=== PATIENT | male | born 1945 | race Caucasian/White ===

== ENCOUNTER 2016-07-08 15:27 | Inpatient (IN) | payer OTHER ==
[~2016-07-08] VITALS: Ht 175.3 cm; Wt 80.9 kg
[2016-07-08] MEDS: HEPARIN SOD (PORCINE) 5000 UNITS/ML VIAL SC SCH (02:28)
[2016-07-08] MEDS ORDERED: ALBU17IN2 INH (15:48)
[2016-07-08] MEDS ORDERED: ASPIRIN 81 MG CHEW TABLET PO ONE (16:00)
[2016-07-08] MEDS: NITROGLYCERIN 0.4 MG SUBL TABLET SL PRN ×3 (16:08→16:31)
[2016-07-08 16:14] LABS: BASO % 0.4 % (0.0-1.0); EOS # 0.1 K/mm3 (0.0-0.50); EOS % 1.6 % (0.0-3.0); INR 0.96; LARGE UNSTAINED CELL # 0.2 K/mm3 (0.0-0.4); LYMPH # 1.3 K/mm3 (1.5-4.5); LYMPH % 13.4 % (24.0-44.0); MEAN CORPUSCULAR HGB CONC 32.5 g/dl (32.0-36.5); MEAN CORPUSCULAR VOLUME 92.3 fl (80.0-96.0); MONO # 0.5 K/mm3 (0.0-0.8); MONO % 5.9 % (0.0-5.0); NEUTROPHILS # 6.4 K/mm3 (1.8-7.7); NEUTROPHILS % 76.6 % (36.0-66.0); PLATELET COUNT, AUTOMATED 156 k/mm3 (150-450); WHITE BLOOD COUNT 8.4 K/mm3 (4.0-10.0)
[2016-07-08 16:24] LABS: ALBUMIN 3.7 GM/DL (3.2-5.2); ALKALINE PHOSPHATASE 85 U/L (45-117); ALT/SGPT 26 U/L (12-78); ANION GAP 8 MEQ/L (8-16); AST/SGOT 14 U/L (15-37); BILIRUBIN,DIRECT 0.2 MG/DL (0.0-0.2); BLOOD UREA NITROGEN 18 MG/DL (7-18); CALCIUM LEVEL 8.2 MG/DL (8.8-10.2); CARBON DIOXIDE LEVEL 29 MEQ/L (21-32); CHLORIDE LEVEL 103 MEQ/L (98-107); CREATININE FOR GFR 0.93 MG/DL (0.70-1.30); GLOMERULAR FILTRATION RATE > 60.0 (>42); GLUCOSE, FASTING 85 MG/DL (83-110); POTASSIUM SERUM 3.7 MEQ/L (3.5-5.1); SODIUM LEVEL 140 MEQ/L (136-145); TOTAL PROTEIN 7.4 GM/DL (6.4-8.2)
[2016-07-08] MEDS ORDERED: ISOVUE-370 76% 100ML VIAL (Q9967) As Ordered ONE (16:39)
--- NOTE | 2016-07-08 16:52 | REP ---
Clinical: Chest pain. Technique: AP and lateral. Comparison: 01/30/2015. Findings: Evaluation is limited by technique. Mediastinum and cardiac silhouette stable. Lung bangura demonstrate chronic interstitial changes. Posterior basilar atelectasis cannot be excluded. Impression: Limited examination cannot exclude posterior basilar atelectasis. Signed by Montana Segundo MD 07/08/2016 04:43 P
[2016-07-08] MEDS ORDERED: GI COCKTAIL 50ML BTL(HYOSCYAMINE/MAALOX/LIDOCAINE VISCOUS)(1:3:1) PO ONE (17:00)
--- NOTE | 2016-07-08 17:09 | REP ---
Clinical: Chest pain and shortness of breath. Technique: Axial contrast enhanced images from the thoracic inlet to the upper abdomen using 100 ml Isovue 370 intravenous contrast material with multiplanar re-formations. Findings: Satisfactory enhancement of the pulmonary vasculature is achieved and no filling defects are identified to suggest pulmonary embolus. Tortuous, ectatic thoracic aorta noted along with cardiomegaly. Lung bangura demonstrate chronic interstitial changes and findings to suggest mild pulmonary vascular congestion as well as small left posterior basilar atelectasis and pleural reaction. Impression: No evidence for pulmonary embolus. Small left posterior basilar atelectasis and pleural reaction. Cardiomegaly with tortuous thoracic aorta and atherosclerotic changes. Signed by Montana Segundo MD 07/08/2016 05:00 P
--- NOTE | 2016-07-08 18:40 | ECGEPIP ---
Stationary ECG Study [facility] - ED Test Date: 2016-07-08 Pat Name: TING OLIVA Department: Room: - Gender: M Single Resource Boss: ct : 1945 Requested By: BIRDIE Tijerina Order Number: [id number] Reading MD: Ricky Stern Measurements Intervals [place] Rate: 81 P: 27 MI: 138 QRS: -19 QRSD: 81 T: 65 QT: 352 QTc: 410 Interpretive Statements SINUS RHYTHM WITH MARKED SINUS ARRHYTHMIA NO PRIORS Electronically Signed On 07-08-2016 18:39:56 EDT by Ricky Stern
[2016-07-08] MEDS ORDERED: MORPHINE 4 MG/ML 1ML SYRINGE IV ONE (19:00)
[2016-07-08] MEDS ORDERED: NS 500 ML IV ONE (19:30)
[2016-07-08] MEDS ORDERED: INCR1INH INH (22:49)
[2016-07-08] MEDS ORDERED: MORPHINE 2 MG/ML 1ML SYRINGE IV PRN (23:30)
[2016-07-08] MEDS ORDERED: GABAPENTIN 300 MG CAP PO ONE (23:30)
[2016-07-08] MEDS ORDERED: LIDOCAINE 5% (LIDODERM) PATCH TD ONE (23:30)
[2016-07-08] MEDS ORDERED: LORazepam 1 MG TAB PO PRN (23:45)
[2016-07-08] MEDS ORDERED: HALOPERIDOL 5 MG/ML VIAL (J1630) IV PRN (23:45)
[2016-07-08] MEDS ORDERED: diphenhydrAMINE 25 MG CAP PO PRN (23:45)
[2016-07-09] MEDS: PERCOCET 5MG/325MG TAB PO PRN ×3 (00:17→19:59)
[2016-07-09] MEDS ORDERED: ALBUTEROL SULFATE 2.5 MG/0.5 ML INH NEB SOLN NEB PRN (01:45)
[2016-07-09] MEDS ORDERED: ONDANSETRON 4MG/2ML VIAL (J2405) As Ordered ONE (02:23)
[2016-07-09] MEDS: ONDANSETRON 4MG/2ML VIAL (J2405) IV PRN ×3 (02:29→17:41)
[2016-07-09 02:33] VITALS: BP 119/70
[2016-07-09] MEDS ORDERED: SLF 3 ML SYR IV PRN (02:45)
--- NOTE | 2016-07-09 02:50 | REPUSA ---
CLINICAL HISTORY: Back pain. Chest pain. TECHNIQUE: Fast spin echo T2 and spin echo T1 sequences were obtained in axial and sagittal planes. FINDINGS: The visualized osseous elements are intact and in normal alignment with no evidence of fracture or di slocation. The marrow signals are within normal limits. The visualized posterior elements are normal and the thoracic curvature is well maintained. The thoracic cord is of uniform signal intensity witho ut evidence of focal expansion. There is mild multilevel spondylosis. This is demonstrated by disc dehydration. Small anterior osteop hytes are seen. At T1-T2 level, no evidence of significant disk herniation or bulge. Canal and foramina are patent. At T2-T3 level, no evidence of significant disk herniation or bulge. Canal and foramina are patent. At T3-T4 level, no evidence of significant disk herniation or bulge. Canal and foramina are patent. At T4-T5 level, no evidence of significant disk herniation or bulge. Canal and foramina are patent. At T5-T6 level, no evidence of significant disk herniation or bulge. Canal and foramina are patent. At T6-T7 level, no evidence of significant disk herniation or bulge. Canal and foramina are patent. At T7-T8 level, no evidence of significant disk herniation or bulge. Canal and foramina are patent. At T8-T9 level, no evidence of significant disk herniation or bulge. Canal and foramina are patent. At T9-T10 level, no evidence of significant disk herniation or bulge. Canal and foramina are patent. At T10-T11 level, no evidence of significant disk herniation or bulge. Canal and foramina are patent. At T11-T12 level, no evidence of significant disk herniation or bulge. Canal and foramina are patent. IMPRESSION: 1. Mild multilevel spondylosis. 2. No evidence for central canal or foraminal stenosis at any level. Thank you for your kind referral of this patient.
--- NOTE | 2016-07-09 03:12 | HPE ---
DATE OF ADMISSION: 07/08/2016 PRIMARY CARE PROVIDER: Cristina Calle CHIEF COMPLAINT: Chest pain. HISTORY OF PRESENT ILLNESS: This patient is a 71-year-old male with past medical history significant for bronchitis, meningitis, Clarke's palsy, questionable hepatitis, who presented to [facility] on 07/08/2016, for chest pain. Patient stated his chest pain started yesterday in the food services manager around 1 a.m. while he was in a sound sleep. The pain was sharp, started at the left lower ribs and radiated to the left lateral chest. The pain resolved spontaneously. However, 1-2 p.m. yesterday, the patient was walking in [facility]. Patient felt like there was a pressure, achy type of discomfort located in bilateral lower ribs. Since then, the pain has been intermittent and therefore the patient came to [facility] for further evaluation. Patient stated he never had this pain in the past. Patient noted that the pain is worse during times of exertion, severe cough, or specific body movements. Patient is noted to have chills around 2 p.m. since the onset of the second chest pain episodes. Patient denies any other symptoms. ALLERGIES: PENICILLIN (lip swelling). HOME MEDICATIONS: - albuterol two puffs inhalation every four hours as needed - Ellipta 62.5 mcg inhalation daily PAST MEDICAL HISTORY: 1. Bronchitis. 2. History of Clarke's palsy. 3. History of meningitis. 4. Questionable history of hepatitis. PAST SURGICAL HISTORY: 1. Left index finger removed; patient had an accident with a table saw. 2. Left ankle repair. SOCIAL HISTORY: Patient used to smoke one pack daily for 50 years; he quit three years ago. Patient quit drinking 35 years ago. Denies any recreational drug use. Patient is DO NOT RESUSCITATE (DNR), DO NOT INTUBATE (DNI). OBJECTIVE: GENERAL: Moderate distress secondary to persistent lower chest discomfort with frequent exacerbation while patient is sitting still. Patient is alert, and oriented times three. HEENT: Normocephalic, atraumatic. Extraocular motors are grossly intact. CARDIOVASCULAR: Positive S1, S2, regular rate. LUNGS: Clear to auscultation bilaterally. ABDOMEN: Soft and nontender, nondistended. Bowel sounds are present. No rebound. No guarding. MUSCULOSKELETAL: Patient's pain can be reproduced by pressing on the mid thoracic region. The pain will start from the mid thoracic region and radiate to the bilateral lower ribs. When asked patient to move bending forward, patient feels there is some mild decrease of the chest pain. NEUROLOGICAL: Muscle strength 5/5. Sensation to fine touch grossly intact. LABORATORY DATA: WBC 8.4, hemoglobin 15, hematocrit 46.2, platelet count is 156. Sodium is 140, potassium 3.7, chloride is 103, carbon dioxide 129, BUN 18, creatinine 0.93, GFR greater than 60, fasting glucose 85, calcium is 8.2, total bilirubin is 1, direct bilirubin is 0.2, AST 14, ALT 26, alkaline phosphatase 85, troponin I is less than 0.02 times two sets. BNP is 19.3, total protein 7.4, albumin 3.7, lipase 105. PT 12.9, INR is 0.96. IMAGING STUDIES: CT angiogram of the chest showed no evidence of pulmonary embolism. Small left posterior bibasilar atelectasis and pleural reaction. Cardiomegaly with tortuous thoracic aorta and sclerotic changes. ASSESSMENT AND PLAN: 1. Chest pain. Patient will be admitted to the progressive care unit (PCU). We will monitor patient on telemetry. We will try to rule out any cardiac factors contributing to patient's chest pain. We will trend troponins. Differential could be nerve compression or stenosis. Patient will have a STAT MRI of the vertebral spine. There are some lung findings noted on CT angiogram. Those may also cause referred pain. We will also obtain echocardiogram. 2. Questionable history of hepatitis. Patient is not sure what type. Will follow with hepatic panel. 3. History of bronchitis. Patient will have breathing treatments as needed. 4. History of meningitis. 5. History of Clarke's palsy. 6. Deep vein thrombosis (DVT) prophylaxis. Patient is on heparin.
[2016-07-09 05:02] LABS: MEAN CORPUSCULAR HEMOGLOBIN 30.5 pg (27.0-33.0); MEAN CORPUSCULAR HGB CONC 33.2 g/dl (32.0-36.5); MEAN CORPUSCULAR VOLUME 91.9 fl (80.0-96.0); RED CELL DISTRIBUTION WIDTH 13.1 % (11.5-14.5); WHITE BLOOD COUNT 11.2 K/mm3 (4.0-10.0)
[2016-07-09 05:16] LABS: ANION GAP 10 MEQ/L (8-16); BLOOD UREA NITROGEN 25 MG/DL (7-18); CALCIUM LEVEL 7.9 MG/DL (8.8-10.2); CARBON DIOXIDE LEVEL 24 MEQ/L (21-32); CHLORIDE LEVEL 103 MEQ/L (98-107); CREATININE FOR GFR 0.95 MG/DL (0.70-1.30); GLOMERULAR FILTRATION RATE > 60.0 (>42); GLUCOSE, FASTING 136 MG/DL (83-110); POTASSIUM SERUM 3.9 MEQ/L (3.5-5.1); SODIUM LEVEL 137 MEQ/L (136-145)
[2016-07-09 05:52] VITALS: BP 124/63
[2016-07-09] MEDS: ACETAMINOPHEN TAB 650MG DOSE (2X325MG) PO PRN (06:02)
[2016-07-09] MEDS: HEPARIN SOD (PORCINE) 5000 UNITS/ML VIAL SC SCH ×3 (06:02→22:44)
[2016-07-09] MEDS: SLF 3 ML SYR IV SCH ×3 (06:02→22:00)
--- NOTE | 2016-07-09 07:21 | ECGEPIP ---
Stationary ECG Study [facility] - ED Test Date: 2016-07-08 Pat Name: TING OLIVA Department: Room: - Gender: M Vtc Technician: ColónB: 1945 Requested By: BIRDIE Tijerina Order Number: [id number] Reading MD: Ricky Stern Measurements Intervals [place] Rate: 73 P: 33 AL: 134 QRS: -14 QRSD: 81 T: 113 QT: 351 QTc: 387 Interpretive Statements SINUS RHYTHM LOW LIMB LEAD VOLTAGE Electronically Signed On 07-09-2016 7:21:44 EDT by Ricky Stern
[2016-07-09 08:00] VITALS: BP 121/77
[2016-07-09] MEDS: LevoFLOXacin IV 500 MG in APPROPRIATE DILUENT 1 EA IV SCH (08:46)
[2016-07-09] MEDS ORDERED: LR 1,000 ML IV SCH (10:30)
[2016-07-09] MEDS: **NOTE PATIENT COMMENT** MISC XX SCH (11:30)
--- NOTE | 2016-07-09 15:07 | IPN ---
DATE: 07/09/2016 Patient is seen and examined. Reported chest pain to be improved. Admitted overnight. Reported cough, but not much out of the ordinary. Denies any fevers or chills. Reported pleuritic chest pain, left-sided and epigastric, substernal that is sharp, worsened with breathing, but as per patient has been much improved. Reported abdominal bloating with one episode of nausea and vomiting. Denies any diaphoresis. VITAL SIGNS: Temperature 97.1, pulse 64, respirations 18, blood pressure 121/77, pulse oximetry 93% on room air. LABORATORY DATA: WBC 11.2, hemoglobin and hematocrit 12.9/38.8, platelets 141. Chemistry: Sodium 137, potassium 3.9, chloride 103, bicarbonate 24, BUN 25, creatinine 0.95. Cardiac enzymes negative times three. C-reactive protein 7.9. Brain natriuretic peptide 19.3. Lipase 105. MRI of the thoracic spine negative. CT angiogram negative. PHYSICAL EXAMINATION: GENERAL: Patient in no acute distress, comfortable. HEENT: Normocephalic, atraumatic. Extraocular muscles grossly intact. CARDIAC: Regular rate and rhythm, normal S1, S2. PULMONARY: Bilaterally clear to auscultation. ABDOMEN: Soft, mildly distended. Normal bowel sounds. No rebound. No guarding. BACK: No significant point tenderness. NEUROLOGICAL: No focal deficits, 5/5 bilateral upper and lower extremity strength. ASSESSMENT AND PLAN: This is a 71-year-old male patient with underlying medical history of bronchitis, meningitis, Clarke's palsy, questionable hepatitis, presented to [facility] for chest pain. 1. Chest pain. Admitted to progressive care unit (PCU). Cardiac enzymes negative times three. Telemetry appreciated. CT angiogram negative for pulmonary embolism (PE). Followup echocardiogram. MRI of the thoracic spine also negative. We will followup up echocardiogram. Supportive care. Symptoms seem to be improving, possibly musculoskeletal versus viral syndrome versus pneumonia. 2. Possible community-acquired bacterial pneumonia. Continue Levaquin. C-reactive protein elevated. CT scan appreciated. We will continue to follow. Incentive spirometry. 3. Nausea and vomiting. One episode noted. Given Zofran. We will followup CT scan of the abdomen later today. IV fluids with hydration. Abdomen exam mildly distended, but normal bowel sounds and passing gas. 4. Questionable history of hepatitis. Followup hepatitis panel. We will continue to monitor. 5. History of bronchitis. No significant wheeze. Continue to monitor. 6. History of meningitis. Supportive care. Continue to monitor. 7. History of Clarke's palsy. Supportive care. Continue to monitor. 8. Deep vein thrombosis (DVT) prophylaxis. Heparin subcutaneous. DISPOSITION PLANNING: Pending echocardiogram, CT of the abdomen, clinical improvement. We will monitor overnight. Potential discharge in the next 24-48 hours.
[2016-07-09] MEDS ORDERED: GASTROGRAFIN SOLUTION 30ML PO ONE (15:30)
[2016-07-09 16:00] VITALS: BP 131/70
[2016-07-09] MEDS ORDERED: GASTROGRAFIN SOLUTION 30ML (Q9963) PO ONE (16:00)
[2016-07-09] MEDS ORDERED: ISOVUE-370 76% 100ML VIAL (Q9967) As Ordered ONE (16:54)
--- NOTE | 2016-07-09 17:30 | REPUSA ---
CT of the abdomen and pelvis with contrast Clinical statement: vomiting, abdominal distention. Technique: Multiple axial CT images were obtained from the base of the lungs through the floor of the pelvis utilizing 5 mm axial slices after administration of oral and nonionic intravenous contrast. C oronal and sagittal reconstructions were also obtained. No comparison is available. Findings: Chest: There are bilateral lower lobe infiltrate as well as a small left-sided pleural effusion. Abdomen: The liver, spleen, pancreas, kidneys, gallbladder, and adrenal glands are unremarkable. The aorta demonstrates moderate atherosclerosis, with left posterior lateral mural thrombus demonstrated at the level of the renal arteries. There is no evidence of abdominal lymphadenopathy or ascites. Pelvis: The bowel is unremarkable, with no obstructive or inflammatory changes. There is mild sigmoid diverticulosis without evidence of diverticulitis. The appendix is normal. The urinary bladder is wi thin normal limits. The prostate is enlarged, measuring 5.1 x 5.9 cm. The other pelvic structures red ear grossly intact. There is no evidence of pelvic lymphadenopathy or ascites. Bones: There are no suspicious osseous abnormalities seen. There is moderate degenerative disc diseas e at L4/L5 and L5/S1. Disc osteophyte complexes at this level cause mild bilateral neural foraminal n arrowing. Impression: 1. No obstructive or inflammatory bowel changes. Sigmoid diverticulosis without evidence of diverticu litis. 2. Bilateral lower lobe infiltrates. Small left-sided pleural effusion. 3. Moderate atherosclerosis of the abdominal aorta without evidence of aneurysm or dissection. 4. Degenerative disc disease with disc osteophyte complexes at L4/L5 and L5/S1 as described.
[2016-07-09 20:00] VITALS: BP 124/70
[2016-07-10] VITALS (17 sets, daily range): BP systolic 113–132; BP diastolic 67–81; O2SAT 92–97
[2016-07-10] MEDS: PERCOCET 5MG/325MG TAB PO PRN (03:32)
[2016-07-10] MEDS: ONDANSETRON 4MG/2ML VIAL (J2405) IV PRN ×2 (05:10→20:51)
[2016-07-10] MEDS: HEPARIN SOD (PORCINE) 5000 UNITS/ML VIAL SC SCH ×3 (05:10→22:24)
[2016-07-10] MEDS: SLF 3 ML SYR IV SCH ×3 (05:10→22:24)
[2016-07-10 05:36] LABS: MEAN CORPUSCULAR HEMOGLOBIN 30.1 pg (27.0-33.0); MEAN CORPUSCULAR HGB CONC 32.7 g/dl (32.0-36.5); MEAN CORPUSCULAR VOLUME 91.9 fl (80.0-96.0); WHITE BLOOD COUNT 9.4 K/mm3 (4.0-10.0)
[2016-07-10 05:40] LABS: ANION GAP 7 MEQ/L (8-16); BLOOD UREA NITROGEN 19 MG/DL (7-18); CALCIUM LEVEL 8.3 MG/DL (8.8-10.2); CARBON DIOXIDE LEVEL 30 MEQ/L (21-32); CHLORIDE LEVEL 101 MEQ/L (98-107); CREATININE FOR GFR 0.81 MG/DL (0.70-1.30); GLOMERULAR FILTRATION RATE > 60.0 (>42); GLUCOSE, FASTING 106 MG/DL (83-110); POTASSIUM SERUM 3.5 MEQ/L (3.5-5.1); SODIUM LEVEL 138 MEQ/L (136-145)
[2016-07-10] MEDS ORDERED: traMADol 50 MG TAB PO PRN (06:00)
--- NOTE | 2016-07-10 06:06 | ECHO ---
DATE OF PROCEDURE: 07/09/2016 DATE OF : 1945 AGE: 71 REFERRING PROVIDER: Dr. Fischer. PATIENT LOCATION: Room 3211. REASON FOR ECHOCARDIOGRAM: Chest pain. 2D MEASUREMENTS: IVS: 1.0 cm LV: 4.9 cm LVPW: 1.0 cm LA: 3.9 cm Aorta: 3.7 cm Ascending aorta: 3.6 cm RV: 2.7 cm DOPPLER MEASUREMENTS: Peak velocity across the aortic valve: 0.9 m/s Peak velocity across the LVOT: 0.81 m/s with a ratio of 1.1 Peak gradient across the aortic valve: 18 mmHg Maximum tricuspid valve velocity: 2.6 m/s 2D COMMENTS: 1. Normal left ventricular size, wall thickness and normal global left ventricular systolic function. The estimated left ventricular systolic ejection fraction is 60% to 65%. 2. Normal left atrium. Normal right atrium and right ventricle. 3. The atrial septum appeared to be normal without evidence of defect or shunt. 4. No pericardial effusion seen. There was an echo free space noted anteriorly that could represent a pericardial fat pad. 5. Normal aortic valve. Minimally calcified mitral annulus with normal anterior mitral valve leaflet motion. Normal tricuspid valve. The pulmonic valve and proximal pulmonary artery branches were not well visualized. 6. The inferior vena cava was not visualized. DOPPLER: It detects trace mitral regurgitation and trace to mild tricuspid regurgitation. The calculated pulmonary artery systolic pressure varies between 30 to 40 mmHg. Abnormal relaxation pattern was noted across the septal and lateral valve annulus consistent with a pseudonormal pattern, left ventricular and diastolic pressure mildly elevated. IMPRESSION: 1. Normal global left ventricular systolic function. There are some features of left ventricular diastolic dysfunction as mentioned above. 2. Mitral annulus calcification with trace mitral regurgitation. 3. Trace to mild tricuspid regurgitation with probably mild pulmonary hypertension.
[2016-07-10] MEDS ORDERED: KETOROLAC TROMETHAMINE 10 MG TAB PO PRN (08:00)
[2016-07-10] MEDS ORDERED: POTASSIUM CHLORIDE 10 MEQ SR TABLET PO ONE (08:15)
[2016-07-10] MEDS ORDERED: PNEUMOCOCCAL VACCINE 0.5ML SYRINGE(90732) PNEUMOVAX 23 IM ONE (09:00)
[2016-07-10] MEDS: LevoFLOXacin IV 500 MG in APPROPRIATE DILUENT 1 EA IV SCH (09:57)
[2016-07-10] MEDS ORDERED: METOPROLOL 5 MG/5 ML VIAL IV STA (10:54)
[2016-07-10] MEDS ORDERED: METOPROLOL TART 25 MG TABLET PO ONE (11:15)
[2016-07-10] MEDS: **NOTE PATIENT COMMENT** MISC XX SCH (11:30)
[2016-07-10 11:47] LABS: T UPTAKE 34 % (33-40); THYROXINE (T4) 7.3 UG/DL (4.5-12.0)
[2016-07-10] MEDS: ASPIRIN 81 MG ENTERIC TAB PO SCH (12:12)
--- NOTE | 2016-07-10 13:47 | ECGEPIP ---
Stationary ECG Study [facility] Test Date: 2016-07-10 Pat Name: TING OLIVA Department: Room: M6566-77 Gender: M Communication Consultant: LEBRON : 1945 Requested By: IRENA KRISHNA Order Number: [id number] Reading MD: Vamsi Cerda Measurements Intervals [place] Rate: 133 P: PA: 0 QRS: -11 QRSD: 78 T: 0 QT: 150 QTc: 224 Interpretive Statements ATRIAL FIBRILLATION WITH RAPID VENTRICULAR RESPONSE PROBABLE INFERIOR MYOCARDIAL INFARCTION, PROBABLY OLD Nonspecific ST-T abnormalities. Increased heart rate and atrial fibrillation ablation new compared with 07/08/2016 at 2124. Electronically Signed On 07-10-2016 13:46:59 EDT by Vamsi Cerda
[2016-07-10] MEDS: AMIODARONE 200 MG TAB (PACERONE) PO SCH ×3 (15:06→22:24)
--- NOTE | 2016-07-10 15:19 | IPN ---
DATE: 07/10/2016 Patient is seen and examined. Reported chest pain to be improved but is having reaction against pain medication with nausea and vomiting. Earlier during the daytime, patient had episode of atrial fibrillation with rapid ventricular response on telemetry. Reported palpitations. Denies any fevers or chills. Reported pleuritic chest pain to be improving. Given Lopressor IV push 5 mg and 25 mg of metoprolol tartrate oral with improvement. Heart rate is down to 110s on telemetry. Cardiac enzymes and thyroid function tests were sent. VITAL SIGNS: Temperature 99.2, pulse 110, respirations 22, blood pressure 131/81, pulse oximetry 95% on two liters nasal cannula. LABORATORY DATA: WBC 9.4, hemoglobin and hematocrit 12.3/40.7, platelets 157. Chemistry: Sodium 138, potassium 3.5, chloride 101, bicarbonate 30, BUN 19, creatinine 0.8. Cardiac enzymes negative. C-reactive protein 14.3. Thyroid function tests negative. PHYSICAL EXAMINATION: GENERAL: Patient in no acute distress, comfortable. HEENT: Normocephalic, atraumatic. Extraocular muscles are intact. CARDIAC: Irregularly irregular, mild tachycardia, S1, S2. PULMONARY: Bilaterally clear to auscultation. Diminished breath sounds bilateral bases. ABDOMEN: Soft, mildly distended. Positive bowel sounds. No rebound. No guarding. BACK: No point tenderness to palpation. EXTREMITIES: No edema of bilateral lower extremities. ASSESSMENT AND PLAN: This is a 71-year-old male patient with underlying medical history of bronchitis, meningitis, Clarke's palsy, questionable hepatitis, who presented to [facility] with chest pain. 1. Chest pain. Progressive care unit (PCU) for telemetry monitoring. Cardiac enzymes have been negative. Telemetry appreciated. CT angiogram negative. Echocardiogram appreciated. MRI of the thoracic spine negative. CT of the abdomen negative. Supportive care, pain medication as ordered. Possibly secondary to atrial fibrillation versus musculoskeletal versus pneumonia. 2. Community-acquired bacterial pneumonia. Continue Levaquin. Followup cultures. C-reactive protein elevated. Incentive spirometry and TheraPEP. 3. Nausea and vomiting, secondary to opiates. Avoid opiates for pain medication. Patient currently on Toradol and Zofran as needed. CT of the abdomen appreciated. Initially hydration given. Supplement electrolytes. 4. New onset atrial fibrillation with rapid ventricular response. Metoprolol IV 5 mg given, placed on metoprolol 25 mg every eight hours. Cardiology consulted. Followup cardiac enzymes. Aspirin 81 mg by mouth daily. Patient has a CHADS2-VASc score of 1. Telemetry monitoring. Followup with cardiology for further recommendation. 5. Questionable history of hepatitis. Followup hepatitis panel. We will continue to monitor. 6. History of bronchitis. No significant wheeze. Continue to monitor. 7. History of meningitis. Supportive care. Continue to monitor. 8. History of Clarke's palsy. Supportive care. Continue to monitor. 9. Questionable history of obstructive sleep apnea. Obstructive sleep apnea (DORA) protocol. Need outpatient followup with restaurant floor manager for pulmonary function tests and sleep studies for possible continuous positive airway pressure (CPAP). In the meantime, we will closely monitor the patient. 10. Deep vein thrombosis (DVT) prophylaxis. Heparin subcutaneous. DISPOSITION PLANNING: Pending cardiology consultation, rate control, clinical improvement.
[2016-07-10] MEDS ORDERED: BACLOFEN 5MG PER 1/2 TABLET PO PRN (15:30)
--- NOTE | 2016-07-10 15:58 | CR ---
DATE OF CONSULTATION: 07/10/2016 REFERRING PHYSICIAN: Beatrice Fischer MD REASON FOR CONSULTATION: Paroxysmal atrial fibrillation with rapid ventricular rate and precordial chest pain. HISTORY OF PRESENT ILLNESS: Mr. Doug Liang is a 71-year-old man with no previously known heart disease who was hospitalized to [facility] after presenting to the emergency room (ER) on 07/08/2016; he presented with chest for which he was subsequently ruled out for acute myocardial infarction. While in the progressive care unit he developed atrial fibrillation with rapid ventricular response. Echocardiogram Doppler 07/09/2016, reported normal left ventricular (LV) systolic function. Grade 1 LV diastolic dysfunction (impaired relaxation filling pattern). Presence of mitral annular calcification with trace mitral regurgitation. Mild tricuspid regurgitation. Probably mild pulmonary hypertension. Patient reports he has not consumed alcohol for the past 35 years. No history of systemic hypertension. Palpitations: Patient has noticed irregular palpitations over his anterior chest intermittently for a few minutes at a time on rare occasions over many years. Palpitations usually last for a few minutes. Concurrently he notices an irregularity of his pulse. No other associated symptoms during these palpitations. For a few years the patient has had recurrent dull ache and pressure over the central anterior chest without radiation that occurs with moderate activity and is relieved by rest. He reports these episodes are rare. Up until he got ill and presented for this hospitalization, he was not bothered by any exertional dyspnea with his ordinary activities of daily living. No orthopnea or paroxysmal nocturnal dyspnea (PND). No leg or ankle swelling. No presyncope or syncope. No embolic events. No intermittent claudication. OTHER PAST MEDICAL AND SURGICAL HISTORY: Recurrent bronchitis. History of Clarke's palsy. History of meningitis. Possible history of hepatitis. Status post left index finger removed by an accident with a table saw. Status post left ankle repair. SOCIAL HISTORY: Prior smoking history of one pack per day for 50 years for which he quit 3 years ago. He reports he has not consumed any alcohol for the past 35 years. No recreational drug use. DO NOT RESUSCITATE status. DO NOT INTUBATE status. Resident of [place], [place]. . FAMILY HISTORY: Father had systemic hypertension and diabetes. One brother had carcinomatosis. REVIEW OF SYSTEMS: Decreased vision, status post bilateral cataract surgeries. Decreased hearing. Prior history of meningitis. Headaches. Chest pain as noted above. Irregular heart beat as noted above. Chronic obstructive pulmonary disease (COPD), asthma, recurrent bronchitis. Hemorrhoids. History of kidney stones. Previous prostate biopsy. Prior vasectomy. Gout. Arthritis. Orthopedic surgery for left ankle and middle finger of left hand. Previous left ankle fracture. Prior back injury. Back pain. Anxiety. No depression. No panic attacks. All other ten-point review of systems negative. PHYSICAL EXAMINATION: Pleasant, mildly overweight, man who appears his chronological age, who was not in respiratory or psychologic distress. Height 69 inches, weight 82.6 kg, body mass index (BMI) 26.9. Temperature 99.2, pulse 130 (irregularly irregular), respiratory rate 22, blood pressure 131/81, oxygen saturation 95% on oxygen 2 liters per minute by nasal cannula. No conjunctival pallor, sclerae icterus or xanthomas. Teeth were in generally poor condition with multiple missing teeth. Oral mucosa was moist and without pallor or cyanosis. Jugular venous pulsations were at 3 cm. Trachea midline. No palpable thyroid. No clubbing of nail beds, cyanosis, or splinter hemorrhages. No skin lesions, skin pallor, or icterus. Oriented to person, place, and time. Mood and affect normal. Curvature of the spine normal. Gait normal. Gross motor strength and tone normal. No abnormal muscle atrophy, fasciculations, or tremors. Respiratory expansion and effort was fair. No crackles or wheezes. No palpable apex beat. No parasternal lifts, heaves, thrills, or palpable heart sounds. First and second heart sounds were variable in intensity. No S3 or murmurs appreciated. No pericardial friction rubs. No palpable abdominal aorta. Femoral pulses normal. Pedal pulses normal. No lower extremity edema. No varicose veins. Abdomen was soft, nontender, with normal bowel sounds. No hepatosplenomegaly or organomegaly. Liver span 12 cm from right midclavicular line. Stool for occult blood not indicated. INVESTIGATIONS: Electrocardiogram 07/10/2016 at 11:08 a.m. 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 Atrial fibrillation new compared with sinus rhythm observed 07/08/2016. Anteroposterior (AP) and lateral chest xray 07/08/2016, was reported to be a limited examination but could not exclude posterior basilar atelectasis. Mediastinum and cardiac silhouette stable. Lung bangura demonstrate chronic interstitial changes. Laboratory work 07/10/2016, showed sodium 138, potassium 3.5, chloride 101, CO2 30, BUN 19, creatinine 0.81, estimated GFR greater than 60, glucose 106, magnesium 2.0, CPK 115, CPK-MB 1.5, troponin I less than 0.02, TSH 1.240, free T4 index normal, thyroxine normal, T3 uptake normal. Laboratory work 07/08/2016, showed BNP 19.3. ASSESSMENT AND PLAN: 1. Paroxysmal atrial fibrillation. Patient reports infrequent episodes over the course of many years of brief palpitations. He has developed atrial fibrillation with rapid ventricular response during this hospitalization and this is the first documentation of atrial fibrillation in this patient. The echocardiogram Doppler showed normal left ventricular (LV) size and systolic function and suggested impaired relaxation filling pattern. Left atrium was normal in size. No significant hemodynamic valve abnormalities were present. Overall, this would be classified as lone atrial fibrillation. His DRAGON CHADS2 score is currently 1 on the basis of age between 65-74 years old. Agree with metoprolol tartrate for heart rate control. I will place him on a short course of amiodarone. My plan is to stop the amiodarone after he converts to sinus rhythm and no plan at this time to be using an antiarrhythmic agent long-term. 2. Precordial chest pain. The patient describes longstanding, stable, exertional, visceral chest pain/discomfort relieved by rest. Suggestive of angina. His ECG shows possible old inferior wall myocardial infarct. Nonspecific ST-T abnormalities. My plan is to arrange for him to undergo a cardiac nuclear stress test as an outpatient for further evaluation. For now, continue metoprolol tartrate and continue aspirin. 3. Abnormal ECG. Electrocardiogram as described above. Management as described under the atrial fibrillation and precordial chest pain categories. Thank you, kindly, for asking us to participate in the cardiac care of Mr. Doug Liang.
[2016-07-10] MEDS: METOPROLOL TART 25 MG TABLET PO SCH (22:24)
[2016-07-11] VITALS (16 sets, daily range): BP systolic 111–139; BP diastolic 59–84; O2SAT 90–96
[2016-07-11 05:31] LABS: MEAN CORPUSCULAR HEMOGLOBIN 30.6 pg (27.0-33.0); MEAN CORPUSCULAR HGB CONC 33.2 g/dl (32.0-36.5); MEAN CORPUSCULAR VOLUME 92.1 fl (80.0-96.0); RED CELL DISTRIBUTION WIDTH 12.9 % (11.5-14.5); WHITE BLOOD COUNT 6.6 K/mm3 (4.0-10.0)
[2016-07-11 05:33] LABS: ANION GAP 6 MEQ/L (8-16); BLOOD UREA NITROGEN 18 MG/DL (7-18); CALCIUM LEVEL 8.2 MG/DL (8.8-10.2); CARBON DIOXIDE LEVEL 29 MEQ/L (21-32); CHLORIDE LEVEL 103 MEQ/L (98-107); GLOMERULAR FILTRATION RATE > 60.0 (>42); GLUCOSE, FASTING 141 MG/DL (83-110); POTASSIUM SERUM 3.7 MEQ/L (3.5-5.1); SODIUM LEVEL 138 MEQ/L (136-145)
[2016-07-11] MEDS: METOPROLOL TART 25 MG TABLET PO SCH (05:57)
[2016-07-11] MEDS: HEPARIN SOD (PORCINE) 5000 UNITS/ML VIAL SC SCH ×3 (05:57→22:04)
[2016-07-11] MEDS: SLF 3 ML SYR IV SCH ×3 (05:57→22:05)
[2016-07-11] MEDS: ASPIRIN 81 MG ENTERIC TAB PO SCH (09:07)
[2016-07-11] MEDS: LevoFLOXacin IV 500 MG in APPROPRIATE DILUENT 1 EA IV SCH (09:07)
--- NOTE | 2016-07-11 11:17 | IPN ---
DATE: 07/11/2016 SUBJECTIVE: Today the patient tells me that he woke up overnight feeling short of breath and this happens to him normally at home. He tells me that at the present time, he is not having any chest pain or any palpitations, those have completely resolved. He has no specific complaints. He has no fevers, chills, shortness of breath, nausea, vomiting or diarrhea. OBJECTIVE: Vital signs: Temperature 98.8, pulse 63, respiratory rate 22, blood pressure 121/59, oxygen saturation 96% on 2 liters nasal cannula. General: He is a pleasant man sleeping peacefully when I entered the room. He puts in his hearing aid. He is easily arousable to verbal stimuli. He is in no acute distress. He is accompanied by his who is sleeping in the adjacent bed. HEENT: Cranial nerves II-XII are grossly intact. Patient has moist mucous membranes. No elevation of CVP. Cardiovascular exam: S1, S2, regular at this time. He is mildly bradycardic. No distant heart sounds appreciated. Respiratory exam: Fairly clear. Abdominal exam: Obese Abdomen is soft. Extremities: There is 1+ edema bilaterally. LABORATORY STUDIES: WBC 6.6, hemoglobin 12.6, hematocrit 37.9, platelet count 152. Chemistry panel: Sodium 138, potassium 3.7, chloride 103, bicarbonate 29, BUN 18, creatinine 1.0. Three sets of cardiac enzymes are negative. CRP is trending down from yesterday 12.4 today down from 14.3. Microbiology: Blood cultures are negative for 48 hours. Respiratory PCR panel is negative. No new imaging. ASSESSMENT AND PLAN: This is a 71-year-old man who initially presented with chest pain. PROBLEMS: 1. Chest pain. Patient has been seen by Dr. Cerda. It sounds as though there is an anginal component. The plan is to undergo an outpatient stress test with Dr. Cerda in the outpatient setting. For the time being, he is on beta barbara and aspirin. In addition, I feel as though the patient has been having significant cough associated with pneumonia. He may be having some costochondritis which is reproducible on physical exam. I will provide him with some ibuprofen for this. 2. Paroxysmal atrial fibrillation. The patient likely had long stranding history of this given his history of palpitations. Dr. Cerda's help once again is appreciated. His ISRAEL/VAS2 score is 1. He is on aspirin. He did receive metoprolol. He did receive one dose of amiodarone yesterday, however, he became bradycardic with sinus carina to 38. At the present time, he is in sinus carina at approximately 50. I did update Dr. Cerda with change in patient status this morning. He agreed with discontinuing amiodarone and decreasing the patient's metoprolol dosing in half. 3. Community acquired pneumonia. The patient's cultures are all negative. He is currently on levofloxacin. Today is day 3 of 7. 4. Nausea and vomiting, adverse reaction to opiates which have been discontinued. 5. History of hepatitis. He does not appear to be exhibiting any hepatitis at the present time, his viral hepatitis panel is negative. Recommend further followup with outpatient provider. 6. Likely chronic obstructive pulmonary disease (COPD), patient has a history of tobacco abuse, long standing. He does not appear weak at this time. However, I suspect he would benefit from an outpatient pulmonary eval. 7. Obstructive sleep apnea. The patient certainly has a history suggestive of obstructive sleep apnea and he has been told he likely has in the past, however, he has never been compliant with CPAP. Recommend pulmonary eval and likely he will benefit from CPAP therapy. 8. Deep venous thrombosis (DVT) prophylaxis, patient is on heparin. DISPOSITION: Patient has been cleared by physical therapy. Should he continue to improve and feel well, I suspect he may be able to be discharged within the next 24 hours. MTDD
[2016-07-11] MEDS: **NOTE PATIENT COMMENT** MISC XX SCH (11:30)
[2016-07-11] MEDS: ACETAMINOPHEN TAB 650MG DOSE (2X325MG) PO PRN (12:08)
[2016-07-11] MEDS: METOPROLOL TART 12.5 MG PER 1/2 TAB PO SCH ×2 (15:09→22:04)
[2016-07-11] MEDS: IBUPROFEN 400 MG TAB PO SCH ×2 (15:10→22:04)
--- NOTE | 2016-07-11 22:36 | ECGEPIP ---
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 Electronically Signed On 07-11-2016 22:35:45 EDT by Vamsi Cerda
--- NOTE | 2016-07-11 22:38 | ECGEPIP ---
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 borderline low limb lead voltages. ABNORMAL RHYTHM ECG No significant change compared with 07/10/2016 at 2102 hours. Electronically Signed On 07-11-2016 22:38:05 EDT by Vamsi Cerda
[2016-07-12] VITALS: O2SAT 92
[2016-07-12 02:00] VITALS: O2SAT 97
[2016-07-12 04:00] VITALS: BP 127/60; O2SAT 96
[2016-07-12 05:12] LABS: MEAN CORPUSCULAR HEMOGLOBIN 30.6 pg (27.0-33.0); MEAN CORPUSCULAR HGB CONC 33.3 g/dl (32.0-36.5); MEAN CORPUSCULAR VOLUME 91.7 fl (80.0-96.0); RED CELL DISTRIBUTION WIDTH 12.7 % (11.5-14.5); WHITE BLOOD COUNT 5.9 K/mm3 (4.0-10.0)
[2016-07-12 05:31] LABS: ANION GAP 5 MEQ/L (8-16); BLOOD UREA NITROGEN 16 MG/DL (7-18); CARBON DIOXIDE LEVEL 30 MEQ/L (21-32); CHLORIDE LEVEL 106 MEQ/L (98-107); GLOMERULAR FILTRATION RATE > 60.0 (>42); GLUCOSE, FASTING 94 MG/DL (83-110); MAGNESIUM LEVEL 2.1 MG/DL (1.8-2.4); POTASSIUM SERUM 3.8 MEQ/L (3.5-5.1); SODIUM LEVEL 141 MEQ/L (136-145)
[2016-07-12] MEDS: METOPROLOL TART 12.5 MG PER 1/2 TAB PO SCH (05:42)
[2016-07-12] MEDS: IBUPROFEN 400 MG TAB PO SCH (05:49)
[2016-07-12] MEDS: SLF 3 ML SYR IV SCH (05:50)
[2016-07-12] MEDS: HEPARIN SOD (PORCINE) 5000 UNITS/ML VIAL SC SCH (05:50)
[2016-07-12 06:00] VITALS: O2SAT 93
[2016-07-12] MEDS ORDERED: LevoFLOXacin 500 MG TABLET PO SCH (06:00)
[2016-07-12 08:00] VITALS: BP 126/76
[2016-07-12] MEDS: ASPIRIN 81 MG ENTERIC TAB PO SCH (08:55)
[2016-07-12] MEDS ORDERED: LEVA500T PO (09:35)
[2016-07-12] MEDS ORDERED: ASPI81TAEC PO (09:35)
[2016-07-12] MEDS ORDERED: NITR4TASL SL (09:35)
[2016-07-12] MEDS ORDERED: METO12TA PO (09:35)
--- NOTE | 2016-07-12 10:46 | DSES ---
DATE OF ADMISSION: 07/08/2016 DATE OF DISCHARGE: DISCHARGE DIAGNOSIS: New-onset atrial fibrillation with rapid ventricular response. SECONDARY DIAGNOSES: 1. Chest pain. 2. Costochondritis. 3. Angina. 4. Community-acquired pneumonia. 5. Nausea and vomiting. 6. Chronic obstructive pulmonary disease (COPD). 7. Likely obstructive sleep apnea. HOSPITAL COURSE: The patient is a 71-year-old man who did not have good followup with the primary care provider and did not seek medical attention very often. He had had a long history of waking up at night short of breath and dyspnea on exertion. He presented with chest pain and was found to have atrial fibrillation with rapid ventricular response and was seen in consultation by Dr. Cerda of cardiology. It was felt as though the chest pain was possibly anginal component. The patient was started on aspirin, a beta barbara, and the plan is for an outpatient stress test. The patient was also started on as needed sublingual nitroglycerin as needed chest pain. The patient during his stay also was noted to have new-onset atrial fibrillation with rapid ventricular response. He did have an echocardiogram completed, which revealed normal left ventricle (LV) systolic function, some features of diastolic dysfunction. Dr. Cerda started him on metoprolol. He did receive one dose of amiodarone in the hospital, after which he became bradycardic and converted to normal sinus rhythm. He remained in a normal sinus rhythm with a heart rate in the 60s. His metoprolol was titrated down to 12.5 mg twice a day. At the present time, the patient has no chest pain. No shortness of breath. No nausea or vomiting. He has been cleared by physical therapy. SUBJECTIVE: Today, the patient denies any specific complaints. OBJECTIVE: Vital signs: Temperature 99, pulse 66, respiratory rate 18, blood pressure (BP) 126/76, oxygen (O2) saturation 96% on room air. General: He is an elderly man lying in bed. He does not appear to be in any distress whatsoever. He is lying flat and comfortable. HEENT: Cranial nerves II-XII are grossly intact. He has moist mucous membranes. No elevation in central venous pressure (CVP). Cardiovascular examination : S1, S2, bradycardic without distant heart sounds appreciated. Respiratory examination: Is actually quite clear with good air movement. He is comfortable on room air. Extremities: No clubbing, cyanosis, or edema. LABORATORY STUDIES: WBC 5.9, hemoglobin 12.8, hematocrit 38.3, platelet count 171. Chemistry panel: Sodium 141, potassium 3.8, chloride 106, bicarbonate 30, BUN 16, creatinine 1.0. He has had three sets of cardiac enzymes, which are negative. A TSH, which was within normal limits. Blood cultures were negative after 48 hours. Respiratory PCR panel was negative. IMAGING: The patient had a thoracic spine MRI in regard to his pain, which revealed multilevel spondylosis but no evidence of central canal or foraminal stenosis. The patient also had a CT angiography of the chest in regard to his chest pain, which revealed to pulmonary embolism (PE) but cardiomegaly. The patient did have a CT scan of the abdomen and pelvis with the concern to nausea and vomiting. There was some concern for a lower lobe pneumonia. ASSESSMENT AND PLAN: This is a 71-year-old man with resolved chest pain. PROBLEMS: 1. Resolved chest pain. Given the reproducible nature and his features on presentation, it is concerning for a costochondritis associated with his cough. However, he does have an existent component, as well, and I would not be surprised if there was underlying anginal component, as well. Dr. Cerda has seen the patient and has arranged for an outpatient stress test. He will followup with Dr. Cerda in his office if it is possible. He was started on aspirin and a beta barbara. Also, the patient on a dietary approaches to stop hypertension (DASH) diet. 2. Paroxysmal atrial fibrillation. The patient has a long history of intermittent palpitations. Congestive heart failure, hypertension, age, diabetes, stroke (CHADS)-vascular disease, age, sex category (VASc) 2 score is 1. He is on a baby aspirin. He is rate-controlled with metoprolol at the present time. He is in sinus after one dose of amiodarone, which made hm bradycardic. I did discuss the case with Dr. Cerda this morning. We will discharge the patient on 12.5 mg of metoprolol twice a day and close followup. 3. Community-acquired pneumonia. The patient is currently on levofloxacin, and his cultures are negative. Will continue to complete a 7-day course. 4. Nausea and vomiting. Likely related to his opiate use for treatment of his pain upon presentation. His pain has resolved, and his nausea and vomiting has resolved. Will discontinue the opiates. 5. History of hepatitis. He did not exhibit any abnormal liver function tests during his stay. However, hepatitis is negative. 6. Chronic obstructive pulmonary disease (COPD). The patient has a long history of tobacco use. He did briefly require oxygen while in the hospital. However, at the present time, he is able to ambulate and never dropped his saturations below 88% on extended ambulation. He does not require home oxygen (O2). However, I think he would benefit from a pulmonary consultation. 7. Possible obstructive sleep apnea. The patient has a long history of waking up at night short of breath, snoring, and daytime sleepiness. His primary care provider had actually recommended him to have a sleep study in the past, and I recommend he has a sleep study once again. Previously, he was discouraged as he does not have electricity where he lives. However, now he has a solar panel, which is new, which would likely support a continuous positive airway pressure (CPAP) machine overnight. I recommend he has outpatient polysomnography. 8. Deep venous thrombosis (DVT) prophylaxis. The patient is on heparin. DISPOSITION: The patient is being discharged home to the care of his . He is at his functional baseline, and all his presenting complaints have resolved. He is to followup with his primary care provider in 7 days and followup with Dr. Cerda as soon as possible. His activity is as prior to admission. His diet is DASH. He is to return to the emergency room (ER) if his symptoms worsen. He should consider outpatient sleep study and pulmonary referral. MEDICATIONS AT THE TIME OF DISCHARGE: Are: - aspirin 81 mg daily - levofloxacin 500 mg daily for 4 days - metoprolol tartrate 12.5 mg twice a day - nitroglycerin 0.4 mg sublingually every 5 minutes as needed for chest pain - albuterol (Proventil HFA) two puffs inhaled every 4 hours as needed for shortness of breath - Incruse Ellipta 62.5 mcg daily Greater than 30 minutes spent organizing disposition.
[2016-07-12] MEDS: **NOTE PATIENT COMMENT** MISC XX SCH (11:30)
== END 2016-07-12 12:19 | disposition home or self-care (01) | DRG 313 ==
LOC: M ED 16:38 → M ED INP 23:11 → M PCU 07-09 02:23
PROVIDERS: ADMIT Internal Medicine; ATTEND Hospitalist
DX: R07.9 Chest pain, unspecified (principal); J15.9 Unspecified bacterial pneumonia; I48.0 Paroxysmal atrial fibrillation; J44.9 Chronic obstructive pulmonary disease, unspecified; G47.33 Obstructive sleep apnea (adult) (pediatric); I20.9 Angina pectoris, unspecified; Z66 Do not resuscitate; M94.0 Chondrocostal junction syndrome [Tietze]; R11.2 Nausea with vomiting, unspecified; Z79.82 Long term (current) use of aspirin; Z79.899 Other long term (current) drug therapy; Z79.01 Long term (current) use of anticoagulants; Z88.0 Allergy status to penicillin; Z89.022 Acquired absence of left finger(s); Z87.891 Personal history of nicotine dependence; T40.605A Adverse effect of unspecified narcotics, initial encounter; Z83.3 Family history of diabetes mellitus; Z82.49 Family history of ischemic heart disease and other diseases of the circulatory system; Z80.9 Family history of malignant neoplasm, unspecified; E66.9 Obesity, unspecified; Z68.26 Body mass index [BMI] 26.0-26.9, adult

== ENCOUNTER 2019-11-09 21:20 | Emergency (ER) | payer MEDICARE, OTHER ==
[~2019-11-09 21:20] MED LIST: ALBU17IN2 INH; ASPI81TAEC PO; INCR1INH INH; LEVA1TAB2 PO; METO1TAB87 PO; NITR4TASL SL
[2019-11-09] MEDS ORDERED: ISOVUE-370 76% 100ML VIAL As Ordered ONE (22:17)
[2019-11-10] MEDS ORDERED: KETOROLAC 30 MG/ML 1ML VIAL ONE
[2019-11-10] MEDS ORDERED: KETOROLAC 30 MG/ML 1ML VIAL As Ordered ONE
[2019-12-25 14:02] LABS: APPEARANCE, URINE CLEAR (CLEAR); BACTERIA, URINE AUTO NEGATIVE (NEGATIVE); BILIRUBIN, URINE AUTO NEGATIVE (NEGATIVE); BLOOD, URINE BLOOD NEGATIVE (NEGATIVE); COLOR, URINE YELLOW (YELLOW); GLUCOSE, URINE (UA) AUTO NEGATIVE (NEGATIVE); KETONE, URINE AUTO NEGATIVE (NEGATIVE); LEUKOCYTE ESTERASE, URINE AUTO NEGATIVE (NEGATIVE); MUCUS, URINE SMALL (NEGATIVE); NITRITE, URINE AUTO NEGATIVE (NEGATIVE); PROTEIN, URINE AUTO NEGATIVE (NEGATIVE); RBC, URINE AUTO 0 /HPF (0-3); SPECIFIC GRAVITY URINE AUTO 1.012 (1.002-1.035); SQUAMOUS EPITHELIAL CELL UR AU 0 /HPF (0-6); UROBILINOGEN, URINE AUTO 0.2 mg/dL (0.0-2.0); WBC, URINE AUTO 0 /HPF (0-3)
[2019-12-25 16:39] LABS: BASO % 0.4 % (0.0-1.0); EOS # 0.1 10^3/uL (0.0-0.5); EOS % 1.5 % (0.0-3.0); HEMATOCRIT 42.2 % (42.0-52.0); HEMOGLOBIN 13.5 g/dl (13.5-17.5); LYMPH % 12.8 % (24.0-44.0); MEAN CORPUSCULAR HEMOGLOBIN 30.2 pg (27.0-33.0); MEAN CORPUSCULAR VOLUME 94.4 fl (80.0-96.0); MONO # 0.7 10^3/uL (0.0-0.8); MONO % 9.3 % (0.0-5.0); NEUTROPHILS # 5.6 10^3/uL (1.5-8.5); NEUTROPHILS % 74.9 % (36.0-66.0); PLATELET COUNT, AUTOMATED 218 10^3/uL (150-450); RED BLOOD COUNT 4.47 10^6/uL (4.30-6.10); WHITE BLOOD COUNT 7.4 10^3/uL (4.0-10.0)
[2020-01-21 16:54] LABS: ALBUMIN 3.2 GM/DL (3.2-5.2); ALT/SGPT 21 U/L (12-78); BILIRUBIN,TOTAL 0.6 MG/DL (0.2-1.0); BLOOD UREA NITROGEN 18 MG/DL (7-18); CALCIUM LEVEL 8.3 MG/DL (8.8-10.2); CARBON DIOXIDE LEVEL 28 MEQ/L (21-32); CHLORIDE LEVEL 108 MEQ/L (98-107); CK-MB VALUE MASS < 1.0 NG/ML (<3.6); CPK CREATINE PHOSPHOKINASE 33 U/L (39-308); CREATININE FOR GFR 1.08 MG/DL (0.70-1.30); GLOMERULAR FILTRATION RATE > 60.0 (>42); GLUCOSE, FASTING 91 MG/DL (70-100); LIPASE 73 U/L (73-393); MB/CK RELATIVE INDEX 3.03 (< OR =4); POTASSIUM SERUM 4.2 MEQ/L (3.5-5.1); SODIUM LEVEL 140 MEQ/L (136-145); TROPONIN I < 0.02 NG/ML (< 0.10)
== END 2019-11-09 23:55 | disposition home or self-care (01) ==
LOC: M ED 21:20
DX: K63.89 Other specified diseases of intestine (principal); K57.30 Diverticulosis of large intestine without perforation or abscess without bleeding; J44.9 Chronic obstructive pulmonary disease, unspecified; I11.9 Hypertensive heart disease without heart failure; Z79.52 Long term (current) use of systemic steroids; Z79.899 Other long term (current) drug therapy; Z79.82 Long term (current) use of aspirin; Z95.1 Presence of aortocoronary bypass graft
CPT/HCPCS: 74177; 80053; 81001; 82550; 82553; 83605; 83690; 84484; 85025; 87086; 96361; 96374; 99284; J1885; Q9967